=== PATIENT | male | born 1995 | race African-American/Black ===

== ENCOUNTER 2018-07-13 07:40 | Emergency (ER) | payer OTHER ==
[~2018-07-13] VITALS: Ht 188 cm; Wt 89.8 kg
[~2018-07-13 07:40] MED LIST: BSS 15 ML ONE; FLUORESCEIN (FLUOR-I-STRIPS) 1 MG STRP ONE; TETRACAINE 0.5% OPHTH SOLN 4 ML BTL (SINGLE DOSE ONLY) ONE
[2018-07-13] MEDS ORDERED: TETRACAINE 0.5% OPHTH SOLN 4 ML BTL (SINGLE DOSE ONLY) ONE (07:42)
--- OUTSIDE RECORDS SUMMARY | 2018-07-13 07:52 | XMS REPORT ---
Author Author ANKUR HYLTON [facility] Address [address] [place] [address] Care Team Providers Care Enterprise Infrastructure Architect Name Role Phone ANKUR HYLTON Unavailable PROBLEMS No Known Problems ALLERGIES Substance Reaction Event Type Date Status Amoxicillin rash Drug Allergy May, Active ENCOUNTERS Encounter Location Date Diagnosis [facility] [address] [facility] [id number] [address] May, Sore throat J02.9 and Acute tonsillitis, unspecified etiology J03.90 IMMUNIZATIONS No Known Immunizations SOCIAL HISTORY Never Assessed REASON FOR VISIT Sore throat JStrasserRN PLAN OF CARE Activity Details Follow Up if not improving with PCP or reg follow up Reason: Pending Test STREP A (IN HOUSE) VITAL SIGNS Height 73 in 2018-06-03 Weight 206.4 lbs 2018-06-03 Temperature 99.5 degrees Fahrenheit 2018-06-03 Heart Rate 100 bpm 2018-06-03 Respiratory Rate 20 2018-06-03 BMI 27.23 kg/m2 2018-06-03 Blood pressure systolic 144 mmHg 2018-06-03 Blood pressure diastolic 96 mmHg 2018-06-03 MEDICATIONS Medication Instructions Dosage Frequency Start Date End Date Duration Status Azithromycin 250 MG Orally Once a day 2 tablets on the first day, then 1 tablet daily for 4 days 24h May, May, 5 day(s) Active RESULTS No Results PROCEDURES Procedure Date Ordered Result Body Site STREP A ASSAY W/OPTIC Jun 03, 2018 CULTURE, BACTERIA, OTHER Jun 03, 2018 INSTRUCTIONS MEDICATIONS ADMINISTERED No Known Medications MEDICAL (GENERAL) HISTORY Type Description Date Surgical History No know Surgical history
--- OUTSIDE RECORDS SUMMARY | 2018-07-13 07:52 | XMS REPORT ---
Author Author JULIO MACHADO Organization [facility] Address [address] [place] [address] Care Team Providers Care Real Estate Paralegal Name Role Phone JULIO MACHADO Unavailable PROBLEMS No Known Problems ALLERGIES Substance Reaction Event Type Date Status Amoxicillin rash Drug Allergy May, Active ENCOUNTERS Encounter Location Date Diagnosis [facility] [id number], [place] [address] May, Nerve pain M79.2 [facility] [address] [id number], [place] [address] 07 May, 2018 Sore throat J02.9 and Acute tonsillitis, unspecified etiology J03.90 IMMUNIZATIONS Vaccine Route Administration Date Status SOLUMEDROL (UP TO 125 MG) IM Intramuscular Jun 11, 2018 Administered SOCIAL HISTORY Never Assessed REASON FOR VISIT right scalp pain to the touch for the past 2 days. bruna PLAN OF CARE Activity Details Follow Up prn Reason: VITAL SIGNS Height 73 in 2018-06-11 Weight 207.8 lbs 2018-06-11 Temperature 98.1 degrees Fahrenheit 2018-06-11 Heart Rate 92 bpm 2018-06-11 Respiratory Rate 20 2018-06-11 BMI 27.41 kg/m2 2018-06-11 Blood pressure systolic 136 mmHg 2018-06-11 Blood pressure diastolic 80 mmHg 2018-06-11 MEDICATIONS No Known Medications RESULTS No Results PROCEDURES Procedure Date Ordered Result Body Site SOLUMEDROL (UP TO 125 MG) Jun 11, 2018 THER/PROPH/DIAG INJ, SC/IM Jun 11, 2018 INSTRUCTIONS MEDICATIONS ADMINISTERED No Known Medications MEDICAL (GENERAL) HISTORY Type Description Date Surgical History No know Surgical history
--- OUTSIDE RECORDS SUMMARY | 2018-07-13 07:52 | XMS REPORT ---
Author Author JULIO MACHADO Organization [facility] Address [address] [place] [address] Care Team Providers Care Media Traffic Manager Name Role Phone JULIO MACHADO Unavailable PROBLEMS No Known Problems ALLERGIES No Information ENCOUNTERS Encounter Location Date Diagnosis [facility] [id number], [place] [address] Jun, Exposure to sexually transmitted disease (STD) Z20.2 [facility] [id number], [place] [address] 15 May, 2018 Nerve pain M79.2 [facility] [id number], [place] [address] May, 2018 Sore throat J02.9 and Acute tonsillitis, unspecified etiology J03.90 IMMUNIZATIONS No Known Immunizations SOCIAL HISTORY Never Assessed REASON FOR VISIT Sexually active with one female partner who is having STD testing performed but does not have results back yet. Last sexually active 5 days ago. Pt is experiencing penile discharge x 3 days. Denies dysuria. [email or web address] PLAN OF CARE Activity Details Follow Up prn Reason: Pending Test GC/CHLAM URINE (STATE) VITAL SIGNS Height 73 in 2018-07-02 Weight 191 lbs 2018-07-02 Temperature 97.8 degrees Fahrenheit 2018-07-02 Heart Rate 80 bpm 2018-07-02 Respiratory Rate 20 2018-07-02 BMI 25.20 kg/m2 2018-07-02 Blood pressure systolic 140 mmHg 2018-07-02 Blood pressure diastolic 90 mmHg 2018-07-02 MEDICATIONS No Known Medications RESULTS No Results PROCEDURES Procedure Date Ordered Result Body Site No Charge Jul 02, 2018 INSTRUCTIONS MEDICATIONS ADMINISTERED No Known Medications MEDICAL (GENERAL) HISTORY Type Description Date Surgical History No know Surgical history
[2018-07-13] MEDS ORDERED: TETRACAINE 0.5% OPHTH SOLN 4 ML BTL (SINGLE DOSE ONLY) OU ONE (08:00)
[2018-07-13] MEDS ORDERED: NS IV 1000 ML 1,000 ML IV SCH ×2 (08:00)
[2018-07-13] MEDS ORDERED: FLUORESCEIN (FLUOR-I-STRIPS) 1 MG STRP OU ONE ×2 (08:00)
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
[2018-07-13] MEDS ORDERED: TETANUS,DIPTH,PERTUSS P/F (BOOSTRIX) 0.5 ML VIAL IM STA (08:46)
[2018-07-13] MEDS ORDERED: IBUPROFEN 800 MG (MOTRIN) TAB PO STA (08:46)
[2018-07-13] MEDS ORDERED: HYDROcodone/APAP 5 MG/325 MG (LORTAB) TAB PO STA (08:46)
[2018-07-13] MEDS ORDERED: CYCLOBENZAPRINE 10 MG (FLEXERIL) TAB PO STA (08:46)
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
[2018-07-13] MEDS ORDERED: CYCL10TA9 PO (09:46)
[2018-07-13] MEDS ORDERED: ACHD5005 PO (09:46)
[2018-07-13] MEDS ORDERED: NAPR-1071 PO (09:47)
[2018-07-13 10:20] VITALS: BP 115/76
== END 2018-07-13 10:20 | disposition home or self-care (01) ==
LOC: ER 07:40
DX: S09.90XA Unspecified injury of head, initial encounter (principal); S00.83XA Contusion of other part of head, initial encounter; S10.93XA Contusion of unspecified part of neck, initial encounter; H57.13 Ocular pain, bilateral; R40.2142 Coma scale, eyes open, spontaneous, at arrival to emergency department; R40.2252 Coma scale, best verbal response, oriented, at arrival to emergency department; R40.2362 Coma scale, best motor response, obeys commands, at arrival to emergency department; Z88.0 Allergy status to penicillin; Z23 Encounter for immunization; V43.53XA Car driver injured in collision with pick-up truck in traffic accident, initial encounter
CPT/HCPCS: 70450; 72125; 90715